=== PATIENT | female | born 2000 ===

== ENCOUNTER 2022-12-30 20:24 | Emergency (ER) | payer MEDICAID ==
[~2022-12-30] VITALS: Ht 144.8 cm; Wt 55.2 kg
[2022-12-30 20:27] VITALS: BP 114/76; PULSE 78; RESP 16; TEMP 98.1; O2SAT 98
[2022-12-30] MEDS ORDERED: predniSONE 20 mg tablet PO ONE (22:00)
[2022-12-30] MEDS ORDERED: PRED20TA PO (22:14)
[2022-12-30] MEDS ORDERED: famotidine 10mg tablet PO SCH (22:15)
== END 2022-12-30 22:26 | disposition home or self-care (01) ==
LOC: ER 20:24
DX: T63.441A Toxic effect of venom of bees, accidental (unintentional), initial encounter (principal); M79.89 Other specified soft tissue disorders; Y92.89 Other specified places as the place of occurrence of the external cause
CPT/HCPCS: 99283; J7512